=== PATIENT | female | born 1945 ===

== ENCOUNTER 2023-06-25 13:41 | Outpatient (OUT) | payer MEDICARE, SELFPAY ==
--- NOTE | 2023-06-25 | XR_ITS ---
The [address] [address] Patient Name: LAURIE REYES MRN: [id number] date: 1945 Sex: F Assigned Patient Location: [facility] Current Patient Location: [facility] Accession/Order Number: [id number] Exam Date: 06/25/2023 13:45 Report Date: 06/25/2023 15:03 At the request of: TURNER DUVALL Procedure: XR foot RT min 3V PROCEDURE: XR foot RT min 3V COMPARISON: None. HISTORY: RIGHT FOOT PAIN FINDINGS: BONES:No acute fracture or dislocation. Mild plantar enthesopathic spurring of the kidneys. Moderate degenerative changes of the midfoot and tarsometatarsal joints. Second metatarsal phalangeal joint valgus and third metatarsal phalangeal joint varus overlap of the toes SOFT TISSUES:Negative. No visible soft tissue swelling. EFFUSION:None visible. OTHER: Negative. XR/XR foot RT min 3V IMPRESSION: Overlapping of the second and third toes Moderate degenerative change Electronically authenticated by: LUKE TANG Date: 06/25/2023 15:03
== END 2023-06-25 13:42 | disposition home or self-care (01) ==
LOC: RAD 13:42
PROVIDERS: Visit Provider Podiatrist Foot & Ankle Surgery
DX: M79.671 Pain in right foot (principal)
CPT/HCPCS: 73630